=== PATIENT | female | born 1990 | race Caucasian/White ===

== ENCOUNTER 2022-04-29 20:59 | Emergency (ER) | payer OTHER ==
[2022-04-29 21:44] LABS: HEMOGLOBIN 12.3 gm/dl (12.3-15.3); RED BLOOD COUNT 3.96 M/UL (4.00-5.10); WHITE BLOOD COUNT 5.1 K/UL (4.5-11.0)
[2022-04-29 22:08] LABS: BUN/CREATININE RATIO 15 (0-10)
== END 2022-04-30 01:40 | disposition home or self-care (01) ==
LOC: ER1 20:59
PROVIDERS: Physician Assistant Medical
DX: I10 Essential (primary) hypertension (principal); F17.210 Nicotine dependence, cigarettes, uncomplicated; R40.2410 Glasgow coma scale score 13-15, unspecified time; R00.1 Bradycardia, unspecified
CPT/HCPCS: 71045; 80053; 82550; 82553; 84484; 85025; 93005; 99285

== ENCOUNTER 2022-05-04 08:31 | Emergency (ER) | payer OTHER ==
[2022-05-04 09:16] LABS: RED BLOOD COUNT 4.58 M/UL (4.00-5.10); WHITE BLOOD COUNT 7.5 K/UL (4.5-11.0)
[2022-05-04 09:17] LABS: HEMOGLOBIN 14.3 gm/dl (12.3-15.3)
[2022-05-04 09:58] LABS: BUN/CREATININE RATIO 17 (0-10)
[2022-05-04] MEDS ORDERED: LOPRESSOR 25 MG25 MG PO (11:25)
== END 2022-05-04 08:39 | disposition home or self-care (01) ==
LOC: ER1 08:31
PROVIDERS: Family Medicine
DX: E86.0 Dehydration (principal); R00.0 Tachycardia, unspecified
CPT/HCPCS: 80053; 80307; 81001; 82550; 82553; 84484; 85025; 93005; 99285

== ENCOUNTER 2022-05-06 21:52 | Emergency (ER) | payer OTHER ==
[~2022-05-06 21:52] MED LIST: LOPRESSOR 25 MG25 MG PO
[2022-05-06 23:34] LABS: HEMOGLOBIN 13.1 gm/dl (12.3-15.3); RED BLOOD COUNT 4.22 M/UL (4.00-5.10); WHITE BLOOD COUNT 8.1 K/UL (4.5-11.0)
[2022-05-06 23:57] LABS: BUN/CREATININE RATIO 30 (0-10)
[2022-05-07] MEDS ORDERED: ZOFRAN ODT 4 MG4 MG PO (00:42)
[2022-05-07] MEDS ORDERED: PANTOPRAZOLE SO20 MG PO (00:42)
== END 2022-05-07 01:15 | disposition home or self-care (01) ==
LOC: ER1 21:52
PROVIDERS: Physician Assistant Medical
DX: R12 Heartburn (principal); R11.2 Nausea with vomiting, unspecified; F17.200 Nicotine dependence, unspecified, uncomplicated
CPT/HCPCS: 80053; 81001; 83690; 84703; 85025; 96374; 96375; 99283; C9113; J2405